=== PATIENT | female | born 1970 | race African-American/Black ===

== ENCOUNTER 2017-08-17 12:46 | Emergency (ER) | payer MEDICARE, OTHER ==
[~2017-08-17] VITALS: Ht 165.1 cm; Wt 90.7 kg
[2017-08-17 12:51] VITALS: BP 147/89
[2017-08-17] MEDS ORDERED: MEPERIDINE HCL (50 MG/ML) 1 ML VIAL IM ONE (14:00)
[2017-08-17] MEDS ORDERED: PROMETHAZINE HCL 25 MG/ML 1ML IM ONE (14:00)
== END 2017-08-17 14:49 | disposition home or self-care (01) ==
LOC: ER 12:52
DX: M54.5 Low back pain (principal); G89.29 Other chronic pain; I10 Essential (primary) hypertension
CPT/HCPCS: 96372; 99284; J2175; J2550

== ENCOUNTER 2017-12-18 07:41 | Emergency (ER) | payer MEDICARE, OTHER ==
[~2017-12-18] VITALS: Ht 165.1 cm; Wt 90.7 kg
[2017-12-18 08:00] VITALS: BP 178/108
[2017-12-18] MEDS ORDERED: PROMETHAZINE HCL 25 MG/ML 1ML IM ONE (08:00)
[2017-12-18] MEDS ORDERED: methylPREDNISolone SOD SUCC 125 MG/2 ML VL IM ONE (08:00)
[2017-12-18] MEDS ORDERED: MEPERIDINE HCL (50 MG/ML) 1 ML VIAL IM ONE (08:00)
[2017-12-18] MEDS ORDERED: METHOCARBAMOL 500 MG TAB PO ONE (08:15)
[2017-12-18] MEDS ORDERED: MORPHINE SULFATE 4 MG/ML SYR/VIAL IM ONE (08:45)
== END 2017-12-18 12:02 | disposition home or self-care (01) ==
LOC: EDUNIT# 07:41 → EDBD 07:41 → ER 07:47
DX: M54.5 Low back pain (principal); G89.29 Other chronic pain; M19.90 Unspecified osteoarthritis, unspecified site; I10 Essential (primary) hypertension; F12.90 Cannabis use, unspecified, uncomplicated; Z90.49 Acquired absence of other specified parts of digestive tract; Z86.73 Personal history of transient ischemic attack (TIA), and cerebral infarction without residual deficits; Z90.710 Acquired absence of both cervix and uterus
CPT/HCPCS: 72131; 96372; 99284; J2175; J2270; J2550; J2930

== ENCOUNTER 2024-09-16 12:25 | Emergency (ER) | payer OTHER ==
[~2024-09-16] VITALS: Ht 175.3 cm; Wt 109.0 kg
[~2024-09-16 12:25] MED LIST: AMLO1TAB23 PO; BENA-36 PO; CLON0.2D6 PO; CYCL-839 PO; DULO20CA PO; HYDR25TA5 PO; METH-1181 PO
--- NOTE | 2024-09-16 12:36 | ED.PDOC ---
History of Present Illness HPI Comments 54-year-old female with PMHx HTN, HLD, COPD brought in by EMS presents with a chief complaint of abdominal pain, nausea, vomiting, diarrhea, and back pain. Patient states that onset of symptoms began yesterday. Patient reports that her pain is localized to her epigastric region, radiating into her back, none xertional, describes as sharp, and rates her pain a 10/10. Patient was just seen at [facility] yesterday for the same chief complaint. Patient endorses marijuana use and states that she has been told before that it can cause abdominal pain, but continues to smoke. Time Seen by MD: 12:27 Primary Care Provider: OUT OF AREA Reviewed Notes: Nurses Notes, Medications, Allergies Allergies: Coded Allergies: NO KNOWN ALLERGIES (Unverified , 08/17/17) Home Meds Reported Medications Clonidine Hydrochloride (Clonidine Hcl) 0.2 Mg/24 Hr Dis, 0.2 MG PO HS for 30 Days, MG 02/10/18 Benazepril Hcl (Benazepril Hcl) 20 Mg Tab, 20 MG PO DAILY for 30 Days, MG 02/10/18 Methocarbamol (Methocarbamol) 500 Mg Tab, 500 MG PO DAILY for 30 Days, MG 02/09/18 Hctz (Hydrochlorothiazide) 25 Mg Tab, 25 MG PO DAILY, TAB 02/09/18 Duloxetine Hcl (Cymbalta) 20 Mg Cap, 1 CAP PO DAILY, #30 CAP 2 Refills 02/09/18 Cyclobenzaprine Hcl (Cyclobenzaprine Hcl) 10 Mg Tab, 10 MG PO Q8HP PRN for FOR MUSCLE SPASM, TAB 02/09/18 Amlodipine Besylate (Amlodipine Besylate) 10 Mg Tab, 1 TAB PO DAILY, #30 TAB 5 Refills 02/09/18 Information Source: Patient, Emergency Med Personnel Mode of Arrival: EMS Severity: Moderate Timing: Days Duration: Since onset Prehospital treatment: [facility] Past Medical History PAST MEDICAL HISTORY: Arthritis, CVA, HTN Surgical History: Cholecystectomy, Hysterectomy MEDICAL INSURANCE CLAIMS SPECIALIST History: Denies all MEDICAL INSURANCE CLAIMS SPECIALIST Hx Family History Family History: Unknown Social History Smoker: Non-Smoker Alcohol: Denies ETOH Use Drugs: Marijuana Lives In: Home Constitutional: denies: chills, diaphoresis, fatigue, fever, malaise, sweats, weakness, others EENTM: denies: blurred vision, double vision, ear bleeding, ear discharge, ear drainage, ear pain, ear ringing, eye pain, eye redness, hearing loss, mouth p ain, mouth swelling, nasal discharge, nose bleeding, nose congestion, nose pain, photophobia, tearing, throat pain, throat swelling, voice changes, others Respiratory: denies: cough, hemoptysis, orthopnea, SOB at rest, shortness of br eath, SOB with excertion, stridor, wheezing, others Cardiovascular: denies: chest pain, dizzy spells, diaphoresis, Dyspnea on exertion, edema, irregular heart beat, left arm pain, lightheadedness, palpitations, PND, syncope, others Gastrointestinal: reports: abdominal pain, diarrhea, nausea, vomiting; denies: abdomen distended, blood streaked bowels, constipated, dysphagia, difficulty swallowing, hematemesis, melena, poor appetite, poor fluid intake, rectal bleeding, rectal pain, others Genitourinary: denies: abnormal vagina bleeding, burning, dyspareunia, dysuria, flank pain, frequency, hematuria, incontinence, pain, , vagina discharge, urgency, others Neurological: denies: dizziness, fainting, headache, left sided numbness, left sided weakness, numbness, paresthesia, pre-existing deficit, right sided numbness, right sided weakness, seizure, speech problems, tingling, tremors, weakness, others Musculoskeletal: denies: back pain, gout, joint pain, joint swelling, muscle pain, muscle stiffness, neck pain, others Integumetry: denies: bruises, change in color, change in hair/nails, dryness, laceration, lesions, lumps, rash, wounds, others Allergic/Immunocompromised: denies: Difficulty Healing, Frequent Infections, Hives, Itching, others Hematologic/Lymphatic: denies: anemia, blood clots, easy bleeding, easy bruising, swollen glands, others Endocrine: denies: excessive hunger, excessive sweating, excessive thirst, excessive urination, flushing, intolerance to cold, intolerance to heat, unexplained weight gain, unexplained weight loss, others Psychiatric: denies: anxiety, bipolar disorder, depression, hopeless, panic disorder, schizophrenia, sleepless, suicidal, others All Other Systems: Reviewed and Negative Physical Exam General Appearance: Mild Distress HEENT: Normal ENT Inspection, Pharynx Normal, TMs Normal Neck: Full Range of Motion, Non-Tender, Normal, Normal Inspection Respiratory: Chest Non-Tender, Lungs Clear, No Accessory Muscle Use, No Respiratory Distress, Normal Breath Sounds Cardiovascular: No Edema, No JVD, No Murmur, No Gallop, Normal Peripheral Pulses, Regular Rate/Rhythm Breast Exam: Deferred Gastrointestinal: No Organomegaly, Non Tender, No Pulsatile Mass, Normal Bowel Sounds, Soft Genitalia: Deferred Pelvic: Deferred Rectal: Deferred Extremities: No calf tenderness, Normal capillary refill, Normal inspection, Normal range of motion, Non-tender, No pedal edema Musculoskeletal : Apperance: Normal Neurologic: Alert, seafood service team member II-XII nml as Tested, Motor Weakness, Normal Affect, Normal Mood, No Sensory Deficits Cerebellar Function: Normal Reflexes: Normal Skin: Dry, Normal Color, Warm Lymphatic: No Adenopathy Was a procedure done? Was a procedure done?: No Differential Dx Considerations may include: Generalized weakness, electrolyte imbalance, dehydration, UTI, Ozempic reaction, hyperemesis cannabinoid X-Ray, Labs, Meds, VS Vital Signs Date Time Temp Pulse Resp B/P (MAP) Pulse Ox O2 Delivery O2 Flow Rate FiO2 09/16/24 15:01 Room Air* 0 21 09/16/24 14:43 76 16 181/86 09/16/24 14:37 98.4 76 16 181/86 (117) 96 98.4 09/16/24 12:34 98.0 71 18 155/115 (128) 98 98.0 Lab Test 09/16/24 12:54 Range/Units White Blood Count 15.2 H 4.4-10.8 10^3/uL Red Blood Count 4.29 4.0-5.20 10^6/uL Hemoglobin 13.6 12.2-16.2 g/dL Hematocrit 40.8 36.0-46.0 % Mean Corpuscular Volume 95.3 80.0-100.0 fL Mean Corpuscular Hemoglobin 31.8 28.0-32.0 pg Mean Corpuscular Hemoglobin Concent 33.4 32.0-36.0 g/dL Red Cell Distribution Width 15.1 H 11.8-14.3 % Platelet Count 359 140-450 10^3/uL Mean Platelet Volume 8.7 6.9-10.8 fL Neutrophils (%) (Auto) 91.3 H 37.0-80.0 % Lymphocytes (%) (Auto) 5.5 L 10.0-50.0 % Monocytes (%) (Auto) 2.9 0.0-12.0 % Eosinophils (%) (Auto) 0.0 0.0-7.0 % Basophils (%) (Auto) 0.3 0.0-2.0 % Neutrophils # (Auto) 13.9 H 1.6-8.6 10 ^3/uL Lymphocytes # (Auto) 0.8 0.4-5.4 10 ^3/uL Monocytes # (Auto) 0.4 0-1.3 10 ^3/uL Eosinophils # (Auto) 0 0-0.8 10 ^3/uL Basophils # (Auto) 0.1 0-0.2 10 ^3/uL Nucleated Red Blood Cells 0.0 % Sodium Level 146 H 136-145 mmol/L Potassium Level 3.2 L 3.5-5.1 mmol/L Chloride Level 109 H 98-107 mmol/L Carbon Dioxide Level 22 20-31 mmol/L Anion Gap 15 5-15 Blood Urea Nitrogen < 5 L 9-23 mg/dL Creatinine 0.68 0.550-1.02 mg/dL Glomerular Filtration Rate Calc 103 >90 mL/min BUN/Creatinine Ratio 7.4 L 10.0-20.0 Serum Glucose 166 H 74-106 mg/dL Calcium Level 10.6 H 8.7-10.4 mg/dL Total Bilirubin 0.6 0.2-1.0 mg/dL Aspartate Amino Transferase (AST) 23 13-40 U/L Alanine Aminotransferase (ALT) 28 7-40 U/L Alkaline Phosphatase 134 H 46-116 U/L Total Protein 8.6 H 5.7-8.2 g/dL Albumin 5.7 H 3.2-4.8 g/dL Lipase 25 12-53 U/L Current Medications Medications (Trade) Dose Ordered Sig/Carol Route Start Time Stop Time Status Last Admin Sodium Chloride 1,000 ml @ 1,000 mls/hr Q1H ONCE IVB 09/16/24 12:45 09/16/24 13:44 DC 09/16/24 14:42 Morphine Sulfate 4 mg ONCE ONCE IV 09/16/24 12:45 09/16/24 12:46 DC 09/16/24 14:43 Pantoprazole Sodium (Protonix) 40 mg ONCE ONCE IV 09/16/24 12:45 09/16/24 12:46 DC 09/16/24 14:42 Prochlorperazine Edisylate (Compazine Inj) 10 mg ONCE ONCE IV 09/16/24 12:45 09/16/24 12:46 DC 09/16/24 14:42 IV Hep-Lock was established The patient was given a 1 L bolus of normal saline. The patient was given morphine 4 mg IV push for the pain The patient was given Protonix 40 mg IV Was given Compazine 10 mg IV push The patient's liver enzymes are elevated The lipase is within normal limits The CBC shows an elevated white blood cell count of 15.2 At this time, the patient was educated about marijuana use as well as the Ozempic side effects The patient will be discharged and will follow up primary care doctor The patient will return to the emergency department's condition worsens. Images Reviewed?: Images reviewed and evaluated by me Time of 1ST Reevaluation: 12:57 Reevaluation 1ST: Improved Time of 2ND Reevaluation: 16:07 Reevaluation 2ND: Improved Patient Education/Counseling: Diagnosis, Treatment, Prognosis, Need For Follow Up Family Education/Counseling: Diagnosis, Treatment, Prognosis, Need For Follow Up SEPSIS Sepsis Screen Physician Orders Urinalysis (09/16/24 12:33) Heplock Iv (09/16/24 12:33) Vital Signs Date Time Temp Pulse Resp B/P (MAP) Pulse Ox O2 Delivery O2 Flow Rate FiO2 09/16/24 15:01 Room Air* 0 21 09/16/24 14:43 76 16 181/86 09/16/24 14:37 98.4 76 16 181/86 (117) 96 98.4 09/16/24 12:34 98.0 71 18 155/115 (128) 98 98.0 Laboratory Tests Test 09/16/24 12:54 White Blood Count 15.2 10^3/uL (4.4-10.8) H Medications Medications Dose Ordered Sig/Carol Route Start Time Stop Time Status Last Admin Dose Admin Morphine Sulfate 4 mg ONCE ONCE IV 09/16/24 12:45 09/16/24 12:46 DC 09/16/24 14:43 Pantoprazole Sodium 40 mg ONCE ONCE IV 09/16/24 12:45 09/16/24 12:46 DC 09/16/24 14:42 Prochlorperazine Edisylate 10 mg ONCE ONCE IV 09/16/24 12:45 09/16/24 12:46 DC 09/16/24 14:42 Sodium Chloride 1,000 ml @ 1,000 mls/hr Q1H ONCE IVB 09/16/24 12:45 09/16/24 13:44 DC 09/16/24 14:42 Departure 1 Departure Time of Disposition: 16:06 Impression: Primary Impression: Cannabinoid hyperemesis syndrome Additional Impression: Medication reaction Qualified Codes: T50.905A - Adverse effect of unspecified drugs, medicaments and biological substances, initial encounter Disposition: HOME / SELF CARE / HOMELESS Condition: Fair Discharged With: Self Critical Care Note Critical Care Time?: No Stability Stability form required: No Heart Score Heart Score: Heart Score Response (Comments) Value History N/A 0 EKG N/A 0 Age N/A 0 Risk Factors N/A 0 Troponin N/A 0 Total 0 I personally scribed for KRISH CASTELLANO MD ([email or web address]) on 09/16/24 at 12:36. Electronically submitted by Bk Dickerson ([email or web address]). KRISH CASTELLANO MD Sep 16, 2024 12:36
[2024-09-16 13:05] LABS: Hematocrit 40.8 % (36.0-46.0); Hemoglobin 13.6 g/dL (12.2-16.2); Mean Corpuscular Hemoglobin 31.8 pg (28.0-32.0); Mean Corpuscular Volume 95.3 fL (80.0-100.0); Nucleated Red Blood Cells % 0.0 %
[2024-09-16 13:33] LABS: Alanine Aminotransferase 28 U/L (7-40); Albumin 5.7 g/dL (3.2-4.8); Alkaline Phosphatase 134 U/L (46-116); Anion Gap 15 (5-15); BUN/Creatinine Ratio 7.4 (10.0-20.0); Bilirubin, Total 0.6 mg/dL (0.2-1.0); Blood Urea Nitrogen < 5 mg/dL (9-23); Calcium 10.6 mg/dL (8.7-10.4); Carbon Dioxide 22 mmol/L (20-31); Chloride 109 mmol/L (98-107); Glucose 166 mg/dL (74-106); Lipase 25 U/L (12-53); Potassium 3.2 mmol/L (3.5-5.1); Sodium 146 mmol/L (136-145); Total Protein 8.6 g/dL (5.7-8.2)
[2024-09-16] MEDS: SODIUM CHLORIDE 0.9% 1,000 ML IVB ONE (14:42)
[2024-09-16] MEDS: PROCHLORPERAZINE EDISYLATE 5 MG/ML 2ML VIAL IV ONE (14:42)
[2024-09-16] MEDS: PANTOPRAZOLE 40 MG/10 ML VIAL INJ IV ONE (14:42)
[2024-09-16] MEDS: MORPHINE SULFATE 4 MG/ML SYR/VIAL IV ONE (14:43)
[2024-09-16] MEDS: POTASSIUM CHL 20 Meq TABLET PO ONE (16:20)
[2024-09-16 16:37] VITALS: TEMP 98.5; O2SAT 96
[2024-09-16 16:38] VITALS: BP 177/79; PULSE 83; RESP 20
== END 2024-09-16 16:49 | disposition home or self-care (01) ==
LOC: ER 12:25 → EDBD 12:25 → ER 16:49
DX: R11.2 Nausea with vomiting, unspecified (principal); T50.905A Adverse effect of unspecified drugs, medicaments and biological substances, initial encounter; M19.90 Unspecified osteoarthritis, unspecified site; I10 Essential (primary) hypertension; Z86.73 Personal history of transient ischemic attack (TIA), and cerebral infarction without residual deficits; Z90.49 Acquired absence of other specified parts of digestive tract; Z90.710 Acquired absence of both cervix and uterus; Z79.899 Other long term (current) drug therapy; X58.XXXA Exposure to other specified factors, initial encounter; Y93.89 Activity, other specified; Y92.89 Other specified places as the place of occurrence of the external cause; Y99.8 Other external cause status
CPT/HCPCS: 36415; 80053; 83690; 85025; 96361; 96374; 96375; 99284; J0780; J2270; J2470; J7030

== ENCOUNTER 2024-11-14 15:34 | Emergency (ER) | payer OTHER ==
[~2024-11-14] VITALS: Ht 170.2 cm; Wt 105.0 kg
--- NOTE | 2024-11-14 15:42 | ED.PDOC ---
GI ASSESSMENT HPI Comments 54 year old female presents to the ED via EMS with a chief compliant of nausea, vomiting, diarrhea onset last night. Per EMS, patient began experiencing nausea, vomiting, diarrhea, diffused abdominal pain, fever, chills, since last night. Patient states she is currently on Ozempic, has experienced similar episodes after taking Ozempic. Patient is a poor historian, actively vomiting during assessment. She was given Zofran PO by EMS in route to ED with no improvement of symptoms. PMHx HTN. Denies chest pain, shortness of breath, dizziness, headache, numbness/tingling. No other symptoms or modifying factors present at this time. Patient was hypertensive and tachypneic at arrival. Time Seen by MD: 15:38 Primary Care Provider: OUT OF AREA Reviewed Notes: Nurses Notes, Mastic Worker Notes, Medications, Allergies Allergies: Coded Allergies: NO KNOWN ALLERGIES (Unverified , 08/17/17) Home Meds Reported Medications Clonidine Hydrochloride (Clonidine Hcl) 0.2 Mg/24 Hr Dis, 0.2 MG PO HS for 30 Days, MG 02/10/18 Benazepril Hcl (Benazepril Hcl) 20 Mg Tab, 20 MG PO DAILY for 30 Days, MG 02/10/18 Methocarbamol (Methocarbamol) 500 Mg Tab, 500 MG PO DAILY for 30 Days, MG 02/09/18 Hctz (Hydrochlorothiazide) 25 Mg Tab, 25 MG PO DAILY, TAB 02/09/18 Duloxetine Hcl (Cymbalta) 20 Mg Cap, 1 CAP PO DAILY, #30 CAP 2 Refills 02/09/18 Cyclobenzaprine Hcl (Cyclobenzaprine Hcl) 10 Mg Tab, 10 MG PO Q8HP PRN for FOR MUSCLE SPASM, TAB 02/09/18 Amlodipine Besylate (Amlodipine Besylate) 10 Mg Tab, 1 TAB PO DAILY, #30 TAB 5 Refills 02/09/18 Information Source: Patient, Emergency Med Personnel Mode of Arrival: EMS Timing: Hours Duration: Since onset Prehospital treatment: Treatment (Zofran PO) Quality: Cramping Severity: Moderate Recent: None Recent Hx of: Other (ozempic) Pain Location: Diffuse Modifying Factors: Nothing Associated sign and symptoms: Nausea, Vomiting, Diarrhea, Abdominal Pain, Fever Past Medical History PAST MEDICAL HISTORY: Arthritis, CVA, HTN Surgical History: Cholecystectomy, Hysterectomy GRANTS DIRECTOR History: Denies all GRANTS DIRECTOR Hx Family History Family History: Unknown Social History Smoker: Non-Smoker Alcohol: Denies ETOH Use Drugs: Marijuana Lives In: Home Constitutional: reports: chills, fever; denies: diaphoresis, fatigue, malaise, sweats, weakness, others EENTM: denies: blurred vision, double vision, ear bleeding, ear discharge, ear drainage, ear pain, ear ringing, eye pain, eye redness, hearing loss, mouth pain, mouth swelling, nasal discharge, nose bleeding, nose congestion, nose pain, photophobia, tearing, throat pain, throat swelling, voice changes, others Respiratory: denies: cough, hemoptysis, orthopnea, SOB at rest, shortness of breath, SOB with excertion, stridor, wheezing, others Cardiovascular: denies: chest pain, dizzy spells, diaphoresis, Dyspnea on exertion, edema, irregular heart beat, left arm pain, lightheadedness, palpitations, PND, syncope, others Gastrointestinal: reports: abdominal pain, diarrhea, nausea, vomiting; denies: abdomen distended, blood streaked bowels, constipated, dysphagia, difficulty swallowing, hematemesis, melena, poor appetite, poor fluid intake, rectal bleeding, rectal pain, others Genitourinary: denies: abnormal vagina bleeding, burning, dyspareunia, dysuria, flank pain, frequency, hematuria, incontinence, pain, , vagina discharge, urgency, others Neurological: denies: dizziness, fainting, headache, left sided numbness, left sided weakness, numbness, paresthesia, pre-existing deficit, right sided numbness, right sided weakness, seizure, speech problems, tingling, tremors, wea kness, others Musculoskeletal: denies: back pain, gout, joint pain, joint swelling, muscle pain, muscle stiffness, neck pain, others Integumetry: denies: bruises, change in color, change in hair/nails, dryness, l aceration, lesions, lumps, rash, wounds, others Allergic/Immunocompromised: denies: Difficulty Healing, Frequent Infections, Hives, Itching, others Hematologic/Lymphatic: denies: anemia, blood clots, easy bleeding, easy bruising, swollen glands, others Endocrine: denies: excessive hunger, excessive sweating, excessive thirst, excessive urination, flushing, intolerance to cold, intolerance to heat, unexplained weight gain, unexplained weight loss, others Psychiatric: denies: anxiety, bipolar disorder, depression, hopeless, panic disorder, schizophrenia, sleepless, suicidal, others All Other Systems: Reviewed and Negative Physical Exam General Appearance: Moderate Distress (Moderate distress due to abdominal pain concerns and nausea and vomiting.), Normal HEENT: Normal ENT Inspection, Pharynx Normal, TMs Normal Neck: Full Range of Motion, Non-Tender, Normal, Normal Inspection Respiratory: Chest Non-Tender, Lungs Clear, No Accessory Muscle Use, No Respiratory Distress, Normal Breath Sounds Cardiovascular: No Edema, No JVD, No Murmur, No Gallop, Normal Peripheral Pulses, Regular Rate/Rhythm Breast Exam: Deferred Gastrointestinal: No Pulsatile Mass, Normal Bowel Sounds, Other (Diffuse right- sided tenderness to palpation throughout. No signs of trauma. Abdomen was mildly rigid.) Genitalia: Deferred Pelvic: Deferred Rectal: Deferred Extremities: No calf tenderness, Normal capillary refill, Normal inspection, N ormal range of motion, Non-tender, No pedal edema Musculoskeletal : Apperance: Normal Neurologic: Alert, No Motor Deficits, Normal Affect, Normal Mood, No Sensory Deficits Cerebellar Function: NOT DONE Reflexes: NOT DONE Skin: Dry, Normal Color, Warm Lymphatic: No Adenopathy Was a procedure done? Was a procedure done?: No GI differential Dx Differential Diagnosis: Appendicitis, Bowel Obstruction, Cholangitis, Cholecystitis, Constipation, Diverticular disease, Gastritis/PUD, Gastroenteritis, GI hemorrhage, Pancreatitis X-Ray, Labs, Meds, VS Vital Signs Date Time Temp Pulse Resp B/P (MAP) Pulse Ox O2 Delivery O2 Flow Rate FiO2 11/14/24 23:33 169/97 11/14/24 23:30 100 15 169/97 11/14/24 22:09 94 32 161/94 (116) 93 11/14/24 21:33 170/104 11/14/24 21:02 170/104 11/14/24 21:00 90 31 170/104 (126) 92 11/14/24 20:55 94 31 169/103 11/14/24 20:25 79 21 197/103 11/14/24 20:02 183/106 11/14/24 19:00 94 31 169/103 (125) 92 11/14/24 17:00 97.8 78 15 148/96 (113) 96 97.8 11/14/24 17:00 78 15 96 Room Air* 0 21 11/14/24 15:38 98.0 70 20 180/100 97 98.0 Lab Test 11/14/24 23:37 11/14/24 21:36 11/14/24 18:07 11/14/24 16:14 Range/Units POC Glucose 182 H 70-106 mg/dl Blood Gas Specimen Type Arterial Blood Gas Sample Site Right radial Blood Gas Patient Temperature 37.0 Arterial Blood Date Drawn [id number] Arterial Blood pH 7.434 7.350-7.450 Arterial Blood Partial Pressure CO2 38.6 32.0-45.0 mmHg Arterial Blood Partial Pressure O2 60.0 L 83.0-108.0 mmHg Arterial Blood HCO3 25.3 21.0-28.0 mmol/L Arterial Blood Oxygen Saturation 91.9 L 94.0-98.0 % Arterial Blood Base Excess 1.2 -2.0-3.0 mmol/L Arterial Blood Oxyhemoglobin 89.9 L 94.0-98.0 % Arterial Blood Carboxyhemoglobin 1.7 H 0.5-1.5 % Arterial Blood Methemoglobin 0.5 0.0-1.5 % Alberto Test Yes Blood Gas Total Hemoglobin 15.30 12.0-16.0 g/dL Blood Gas Modality Room air Blood Gas Spontaneous Rate 26 FiO2 % 21.0 Troponin I High Sensitivity < 3 L < 3 L </=34 ng/L B-Type Natriuretic Peptide 8.20 0-100 pg/mL Beta-Hydroxybutyric Acid 2.045 H < 0.4 mmol/L White Blood Count 15.0 H 4.4-10.8 10^3/uL Red Blood Count 4.51 4.0-5.20 10^6/uL Hemoglobin 14.6 12.2-16.2 g/dL Hematocrit 44.4 36.0-46.0 % Mean Corpuscular Volume 98.4 80.0-100.0 fL Mean Corpuscular Hemoglobin 32.3 H 28.0-32.0 pg Mean Corpuscular Hemoglobin Concent 32.8 32.0-36.0 g/dL Red Cell Distribution Width 14.0 11.8-14.3 % Platelet Count 288 140-450 10^3/uL Mean Platelet Volume 8.7 6.9-10.8 fL Neutrophils (%) (Auto) 87.8 H 37.0-80.0 % Lymphocytes (%) (Auto) 8.7 L 10.0-50.0 % Monocytes (%) (Auto) 3.1 0.0-12.0 % Eosinophils (%) (Auto) 0.1 0.0-7.0 % Basophils (%) (Auto) 0.3 0.0-2.0 % Neutrophils # (Auto) 13.2 H 1.6-8.6 10 ^3/uL Lymphocytes # (Auto) 1.3 0.4-5.4 10 ^3/uL Monocytes # (Auto) 0.5 0-1.3 10 ^3/uL Eosinophils # (Auto) 0 0-0.8 10 ^3/uL Basophils # (Auto) 0 0-0.2 10 ^3/uL Nucleated Red Blood Cells 0.1 % Sodium Level 142 136-145 mmol/L Potassium Level 3.5 3.5-5.1 mmol/L Chloride Level 105 98-107 mmol/L Carbon Dioxide Level 20 20-31 mmol/L Anion Gap 17 H 5-15 Blood Urea Nitrogen 6 L 9-23 mg/dL Creatinine 0.84 0.550-1.02 mg/dL Glomerular Filtration Rate Calc 82 >90 mL/min BUN/Creatinine Ratio 7.1 L 10.0-20.0 Serum Glucose 162 H 74-106 mg/dL Calcium Level 10.8 H 8.7-10.4 mg/dL Test 11/14/24 00:00 Range/Units Urine Color Light-yellow Yellow Urine Clarity Clear Clear Urine pH 6.5 5.0-9.0 Urine Specific [place] 1.015 1.001-1.035 Urine Protein 2+ H Negative Urine Ketones 4+ H Negative Urine Blood Negative Negative /uL Urine Nitrite Negative Negative Urine Bilirubin Negative Negative Urine Urobilinogen Normal Negative mg/dL Urine Leukocyte Esterase Negative Negative /uL Urine RBC 2 0 - 4 /hpf Urine Microscopic WBC 2 0-5 /HPF Urine Squamous Epithelial Cells Few <5 /hpf Urine Bacteria Few H None Seen /hpf Urine Glucose Normal Normal mg/dL Current Medications Medications (Trade) Dose Ordered Sig/Carol Route Start Time Stop Time Status Last Admin Metoclopramide HCl (Reglan Injection) 10 mg ONCE ONCE IM 11/14/24 18:30 11/14/24 18:31 DC 11/14/24 18:29 Clonidine HCl (Catapres Tablet) 0.2 mg ONCE ONCE PO 11/14/24 19:30 11/14/24 19:32 DC 11/14/24 20:02 Hydromorphone HCl (Dilaudid Injection) 1 mg ONCE ONCE IV 11/14/24 20:15 11/14/24 20:16 DC 11/14/24 20:25 Prochlorperazine Edisylate (Compazine Inj) 10 mg ONCE ONCE IV 11/14/24 20:15 11/14/24 20:16 DC 11/14/24 20:23 Hydralazine HCl (Apresoline Injection) 10 mg ONCE ONCE IV 11/14/24 21:15 11/14/24 21:16 DC 11/14/24 21:33 Morphine Sulfate 4 mg ONCE ONCE IV 11/14/24 22:30 11/14/24 22:31 DC 11/14/24 23:30 Hydralazine HCl (Apresoline Injection) 10 mg ONCE ONCE IV 11/14/24 22:30 11/14/24 22:31 DC 11/14/24 23:33 X-Ray, Labs, Meds, VS Comment All studies performed in the ED were evaluated by me personally. Serum laboratories were remarkable for a mild leukocytosis as well as a 17 gap. ABG showed a low PO2 was unremarkable PH. Patient did have an elevated beta hydroxybutyric acid level. CT with contrast of the abdomen revealed a cardiomegaly and hepatomegaly. No acute intra-abdominal or pelvic findings were noted. Patient does have diverticulosis without acute diverticulitis. This patient is a [employer] patient therefore, I spoke with Dr. Wright and advised her with the patient presentation as well as laboratory, imaging and response to medications related to her blood pressure concerns. Blood pressure was trending in the right direction and therefore, Dr. Wright stated to discharge the patient and she will set an outpatient to follow up for her on Sunday. Time of 1ST Reevaluation: 00:31 Reevaluation 1ST: Improved Consultation: PCP, Cardiology Patient Education/Counseling: Diagnosis, Treatment, Prognosis Family Education/Counseling: Diagnosis, Treatment, No Family Present SEPSIS Sepsis Screen Recent Procedure: No On Antibiotic Therapy: No Respiratory Rate >20: No Heart Rate >90: No Temp<36 C (96.8 F) or >38.3 C: No SBP <90 or MAP <65 mmHG: No New Acute Mental Status Change: No Is the patient on CPAP, BIPAP,: No Physician Orders Electrocardigram (11/14/24 15:38) Heplock Iv (11/14/24 ) Abg W/ Co-Ox (11/14/24 21:26) Ct Ab Pel With Iv Con Only (11/14/24 22:21) Vital Signs Date Time Temp Pulse Resp B/P (MAP) Pulse Ox O2 Delivery O2 Flow Rate FiO2 11/14/24 23:33 169/97 11/14/24 23:30 100 15 169/97 11/14/24 22:09 94 32 161/94 (116) 93 11/14/24 21:33 170/104 11/14/24 21:02 170/104 11/14/24 21:00 90 31 170/104 (126) 92 11/14/24 20:55 94 31 169/103 11/14/24 20:25 79 21 197/103 11/14/24 20:02 183/106 11/14/24 19:00 94 31 169/103 (125) 92 11/14/24 17:00 97.8 78 15 148/96 (113) 96 97.8 11/14/24 17:00 78 15 96 Room Air* 0 21 11/14/24 15:38 98.0 70 20 180/100 97 98.0 Laboratory Tests Test 11/14/24 16:14 White Blood Count 15.0 10^3/uL (4.4-10.8) H Medications Medications Dose Ordered Sig/Carol Route Start Time Stop Time Status Last Admin Dose Admin Clonidine HCl 0.2 mg ONCE ONCE PO 11/14/24 19:30 11/14/24 19:32 DC 11/14/24 20:02 Hydralazine HCl 10 mg ONCE ONCE IV 11/14/24 21:15 11/14/24 21:16 DC 11/14/24 21:33 Hydralazine HCl 10 mg ONCE ONCE IV 11/14/24 22:30 11/14/24 22:31 DC 11/14/24 23:33 Hydromorphone HCl 1 mg ONCE ONCE IV 9/19/25 20:15 11/14/24 20:16 DC 11/14/24 20:25 Metoclopramide HCl 10 mg ONCE ONCE IM 11/14/24 18:30 11/14/24 18:31 DC 11/14/24 18:29 Morphine Sulfate 4 mg ONCE ONCE IV 11/14/24 22:30 11/14/24 22:31 DC 11/14/24 23:30 Prochlorperazine Edisylate 10 mg ONCE ONCE IV 11/14/24 20:15 11/14/24 20:16 DC 11/14/24 20:23 Departure 1 Departure Time of Disposition: 00:32 Impression: Primary Impression: Abdominal pain Additional Impressions: Nausea and vomiting Hypertensive urgency Disposition: HOME / SELF CARE / HOMELESS Condition: Stable Additional Instructions: Patient has been advised to follow up with her primary care provider and compactor driver on Sunday for re-evaluation. Patient should discuss stopping Ozempic with the primary care provider as I believe this may be causing some of her problems. e-Prescriptions Acetaminophen (Acetaminophen) 500 Mg Tab 500 MG PO Q4HP PRN, #30 TAB Prov: ROSELIA ARNOLD [facility] 11/15/24 Ondansetron Odt 4MG Tab (ZOFRAN PO) 4 Mg Tb 4 MG PO Q6HP PRN, #20 TAB ODT TAB-DISSOLVE IN MOUTH, THEN SWALLOW Prov: ROSELIA ARNOLD [facility] 11/15/24 Metoclopramide Hcl (Reglan) 10 Mg Tab 10 MG PO Q6HP PRN, #20 TAB Prov: ROSELIA ARNOLD [facility] 11/15/24 Dicyclomine Hcl (BENTYL CAPSULE) 10 Mg Cp 1 CAP PO Q6HPRN, #20 CAP 0 Refills Prov: ROSELIA ARNOLD 11/15/24 Discharged With: Self, Relative Critical Care Note Critical Care Time?: No Stability Stability form required: No Heart Score Heart Score: Heart Score Response (Comments) Value History N/A 0 EKG N/A 0 Age N/A 0 Risk Factors N/A 0 Troponin N/A 0 Total 0 I personally scribed for ROSELIA ARNODL PAC ([email or web address]) on 11/14/24 at 15:42. Electronically submitted by Roxanna Aquino ([email or web address]). ROSELIA ARNOLD PAC Nov 14, 2024 15:42
[2024-11-14 16:28] LABS: Hematocrit 44.4 % (36.0-46.0); Hemoglobin 14.6 g/dL (12.2-16.2); Mean Corpuscular Hemoglobin 32.3 pg (28.0-32.0); Mean Corpuscular Volume 98.4 fL (80.0-100.0); Nucleated Red Blood Cells % 0.1 %
[2024-11-14 16:34] LABS: Chloride 105 mmol/L (98-107); Potassium 3.5 mmol/L (3.5-5.1); Sodium 142 mmol/L (136-145)
[2024-11-14 16:36] LABS: Anion Gap 17 (5-15)
[2024-11-14 16:38] LABS: Calcium 10.8 mg/dL (8.7-10.4); Carbon Dioxide 20 mmol/L (20-31)
[2024-11-14 16:41] LABS: BUN/Creatinine Ratio 7.1 (10.0-20.0); Blood Urea Nitrogen 6 mg/dL (9-23); Glucose 162 mg/dL (74-106)
[2024-11-14 17:00] VITALS: PULSE 78; RESP 15; TEMP 97.8; O2SAT 96
[2024-11-14] MEDS: ONDANSETRON HCL 4 MG/2 ML VIAL IV ONE (18:25)
[2024-11-14] MEDS: METOCLOPRAMIDE HCL 5MG/ml INJ 2ml VIAL IV ONE (18:25)
[2024-11-14] MEDS: METOCLOPRAMIDE HCL 5MG/ml INJ 2ml VIAL IM ONE (18:29)
[2024-11-14] MEDS: HYDROmorphone HCL 2 MG/ML VL/or syr IM ONE (19:30)
[2024-11-14] MEDS: PROCHLORPERAZINE EDISYLATE 5 MG/ML 2ML VIAL IM ONE (20:05)
[2024-11-14 20:21] LABS: Urine Protein, UAD 2+ (Negative)
[2024-11-14] MEDS: PROCHLORPERAZINE EDISYLATE 5 MG/ML 2ML VIAL IV ONE (20:23)
[2024-11-14] MEDS: HYDROmorphone HCL 2 MG/ML VL/or syr IV ONE (20:25)
[2024-11-14] MEDS: SODIUM CHLORIDE 0.9% 1,000 ML IV ONE (21:07)
[2024-11-14] MEDS: hydrALAZINE HCL 20 MG/ML VL IV ONE ×2 (21:33→23:33)
[2024-11-14 21:48] LABS: Base Excess 1.2 mmol/L (-2.0-3.0)
[2024-11-14 22:09] VITALS: O2SAT 93
[2024-11-14] MEDS: IOHEXOL 300 MG/ML 100ML BOTTLE IJ ONE (22:40)
[2024-11-14] MEDS: MORPHINE SULFATE 4 MG/ML SYR/VIAL IV ONE (23:30)
--- NOTE | 2024-11-15 00:10 | DVH ---
Exam: CT CT AB PEL WITH IV CON ONLY History: Bilateral epigastric abdominal pain COMPARISON: None Technique: Multidetector spiral CT of the abdomen and pelvis was performed from lung bases to pubic s ymphysis. Intravenous contrast was administered during this examination. Portal venous imaging was o btained. Axial, coronal and sagittal multiplanar reformats were performed by the technologist on a [employer] workstation. Radiation Dose : 1. Abdomen/Pelvis: CTDIvol 9.12mGy, DLP 538.72 mGy*cm. CONTRAST: Type of contrast: Omnipaque 300 Contrast injected: 100 ml Findings: Lung Bases: No acute or significant lung base finding. Moderate posterior bibasilar subsegmental atel ectasis. Cardiomegaly. No pleural or pericardial effusion. Liver: The liver is enlarged, measuring 23.1 cm in craniocaudal dimension. No focal lesions. Normal hepatic vascular enhancement. Gallbladder and Biliary Tree: Status post cholecystectomy. Spleen: Unremarkable Pancreas: The pancreas is normal in appearance without focal lesions or abnormal enhancement. Adrenal Glands: Unremarkable Kidneys: No nephrolithiasis or hydronephrosis. Subcentimeter bilateral renal cortical cysts. Bladder: Unremarkable Bowel: The stomach is grossly normal in appearance. Diverticulosis coli without CT evidence of acute diverticulitis. Small bowel and colon are otherwise normal in caliber and distribution. The appendix is normal. Ascites: Absent Lymphadenopathy: No mesenteric, retroperitoneal or periportal lymphadenopathy. Abdominal Wall and Mesentery: Unremarkable. Vasculature: The visualized abdominal aorta is normal in size and caliber. Atherosclerotic vascular c alcifications. Abdominal and pelvic vessels demonstrate normal enhancement. Pelvic Organs: Unremarkable status post hysterectomy. Musculoskeletal: No aggressive focal bony lesions, acute fractures or dislocation. Post discectomy at the L4-L5 and L5-S1 levels. IMPRESSION: 1. No acute abdominal or pelvic finding. 2. Cardiomegaly. 3. Hepatomegaly. 4. Diverticulosis coli without CT evidence of acute diverticulitis. Radiation optimization: All CT scans at this facility use at least one of these dose optimization chris hniques: automated exposure control mA and/or kV adjustment per patient size (includes targeted exam s where dose is matched to clinical indication) or iterative reconstruction.
[2024-11-15] MEDS ORDERED: ACET500T58 PO (00:35)
[2024-11-15] MEDS ORDERED: METO-281 PO (00:35)
[2024-11-15] MEDS ORDERED: ZOFR4T PO (00:35)
[2024-11-15] MEDS ORDERED: DICY10CA PO (00:35)
[2024-11-15 00:39] VITALS: BP 161/64; PULSE 75; RESP 16
== END 2024-11-15 00:55 | disposition home or self-care (01) ==
LOC: ER 15:34 → EDBD 15:34 → ER 11-15 00:55
DX: I16.0 Hypertensive urgency (principal); R10.84 Generalized abdominal pain; R11.2 Nausea with vomiting, unspecified; F12.90 Cannabis use, unspecified, uncomplicated; M19.90 Unspecified osteoarthritis, unspecified site; I10 Essential (primary) hypertension; Z90.710 Acquired absence of both cervix and uterus; Z86.73 Personal history of transient ischemic attack (TIA), and cerebral infarction without residual deficits; Z79.899 Other long term (current) drug therapy; Z90.49 Acquired absence of other specified parts of digestive tract
CPT/HCPCS: 36415; 36600; 74177; 80048; 81001; 82010; 82805; 82947; 83880; 84484; 85025; 96372; 96374; 96375; 96376; 99285; J0360; J0780; J1171; J2270; J2765; Q9967; 82962